=== PATIENT | female | born 1935 | race Caucasian/White ===

== ENCOUNTER 2017-10-04 13:31 | Emergency (ER) | payer BC ==
[~2017-10-04] VITALS: Ht 170.2 cm; Wt 68.8 kg
[~2017-10-04 13:31] MED LIST: CADU10TA; LORA10TA7; MONT10TA2; PARO10TA; PRIN5TAB
[2017-10-04 13:37] VITALS: BP 139/67; PULSE 46; RESP 15; TEMP 98; O2SAT 95
[2017-10-04 13:38] VITALS: O2SAT 98
[2017-10-04] MEDS ORDERED: SODIUM CHLORIDE 0.9% FLUSH 10 ML FLUSH IVF PRN (13:45)
[2017-10-04 13:50] VITALS: BP 134/58; PULSE 45; RESP 16; O2SAT 95
--- NOTE | 2017-10-04 13:54 | PD ---
HPI Chief Complaint: Neurologic symptoms Time Seen by Provider: 13:33 Travel History International Travel<30 days: No Contact w/Intl Traveler<30days: No Traveled to known affect area: No History of Present Illness HPI This patient brought in emergently by paramedics from the shelter that she lives at. Patient was last seen at baseline at 10:30 AM this morning. She presents having right-sided facial droop. She is wheelchair-bound per manager of training report. There was some vagueness and inconsistency as to whether this was a stroke alert or not. It was not called ahead of time as such. In any event she presents out of a 3 hour window. She is on Eliquis for history of A. fib. She is complaining of headache. She was noted to have some right- sided facial weakness. sHe denies aphasia or slurring or weakness of arms or legs different than her baseline. She has baseline bilateral leg weakness and does not ambulate. Duration 3 hours plus a few extra minutes. No alleviating factors. No exacerbating factors. [facility] Past Medical History Anxiety: Yes Hypertension: Yes Past Surgical History Section: Yes Eye Surgery: Yes (CATARACT REMOVED-2004) Tonsillectomy: Yes Social History Alcohol Use: No Tobacco Use: No Substance Use: No Allergies-Medications (Allergen,Severity, Reaction): Coded Allergies: penicillin G (Verified Allergy, Mild, 10/04/17) Reported Meds & Prescriptions Reported Meds & Active Scripts Active Reported Caduet 10/10 (Amlodipine/Atorvastatin) 10 Mg/10 Mg Tab Prinivil (Lisinopril) 5 Mg Tab Singulair (Montelukast Sodium) 10 Mg Tab Claritin (Loratadine) 10 Mg Tab Paxil (Paroxetine HCl) 10 Mg Tab Review of Systems General / Constitutional: No: Fever Eyes: No: Visual changes HENT: No: Headaches Cardiovascular: Positive: Edema, No: Chest Pain or Discomfort Respiratory: No: Shortness of Breath Gastrointestinal: No: Abdominal Pain Genitourinary: No: Dysuria Musculoskeletal: Positive: Weakness, Edema, No: Pain Skin: No Rash Neurologic: Positive: Weakness Psychiatric: No: Depression Endocrine: No: Polydipsia Hematologic/Lymphatic: No: Easy Bruising Physical Exam Narrative GENERAL: Well-nourished, well-developed patient in no apparent distress. SKIN: Focused skin assessment reveals no rash and nodules. Skin is Warm and dry. HEAD: Atraumatic. Normocephalic. EYES: Pupils equal and round. No scleral icterus. No injection or drainage. ENT: No nasal bleeding or discharge. Mucous membranes pink and moist. NECK: Trachea midline. No JVD. CARDIOVASCULAR: Regular rate and rhythm. No murmur appreciated. RESPIRATORY: No accessory muscle use. Clear to auscultation. Breath sounds equal bilaterally. GASTROINTESTINAL: Abdomen soft, non-tender, nondistended. Hepatic and splenic margins not palpable. MUSCULOSKELETAL: No obvious deformities. No clubbing. No cyanosis. Symmetric edema of the lower legs and ankles NEUROLOGICAL: Awake and alert. Has weakness of the right side of her face. There is right-sided facial droop and weakness of the right periorbital musculature. There is also weakness of the right forehead. She has very asymmetric forehead wrinkling. Motor exam shows symmetric upper extremity strength. She has symmetric but diffusely weak lower extremities. She cannot lift either leg completely off the bed. Speech is understandable and I do not detect slurring. PSYCHIATRIC: Appropriate mood and affect; insight and judgment normal. Data Data Last Documented VS Vital Signs Date Time Temp Pulse Resp B/P (MAP) Pulse Ox O2 Delivery O2 Flow Rate FiO2 10/04/17 14:00 52 15 127/63 (84) 95 Nasal Cannula 3.00 10/04/17 13:37 98.0 Orders Orders Electrocardiogram (10/04/17 13:42) Complete Blood Count With Diff (10/04/17 13:42) Basic Metabolic Panel (Bmp) (10/04/17 13:42) Ct Brain W/O Iv Contrast(Rout) (10/04/17 13:42) Ecg Monitoring (10/04/17 13:42) Iv Access Insert/Monitor (10/04/17 13:42) Oximetry (10/04/17 13:42) Blood Glucose (10/04/17 13:42) Sodium Chloride 0.9% Flush (Ns Flush) (10/04/17 13:45) Labs Laboratory Tests Test 10/04/17 13:45 White Blood Count 3.1 TH/MM3 Red Blood Count 3.18 MIL/MM3 Hemoglobin 10.4 GM/DL Hematocrit 29.0 % Mean Corpuscular Volume 91.4 FL Mean Corpuscular Hemoglobin 32.9 PG Mean Corpuscular Hemoglobin Concent 36.0 % Red Cell Distribution Width 15.6 % Platelet Count 435 TH/MM3 Mean Platelet Volume 7.0 FL Neutrophils (%) (Auto) 47.1 % Lymphocytes (%) (Auto) 41.3 % Monocytes (%) (Auto) 11.3 % Eosinophils (%) (Auto) 0.1 % Basophils (%) (Auto) 0.2 % Neutrophils # (Auto) 1.5 TH/MM3 Lymphocytes # (Auto) 1.3 TH/MM3 Monocytes # (Auto) 0.3 TH/MM3 Eosinophils # (Auto) 0.0 TH/MM3 Basophils # (Auto) 0.0 TH/MM3 CBC Comment AUTO DIFF Differential Comment AUTO DIFF CONFIRMED Ovalocytes 1+ Blood Urea Nitrogen 17 MG/DL Creatinine 0.95 MG/DL Random Glucose 129 MG/DL Calcium Level 8.7 MG/DL Sodium Level 138 MEQ/L Potassium Level 3.9 MEQ/L Chloride Level 95 MEQ/L Carbon Dioxide Level 37.4 MEQ/L Anion Gap 6 MEQ/L Estimat Glomerular Filtration Rate 56 ML/MIN MDM Medical Decision Making Medical Screen Exam Complete: Yes Emergency Medical Condition: Yes Medical Record Reviewed: Yes Differential Diagnosis Ischemic CVA, hemorrhagic CVA, Reddy's palsy Narrative Course I have reviewed the patient's electronic medical record. I have ordered EKG and labs and brain CT I do not feel stroke alert protocol would be beneficial to this patient She is not a candidate for TPA, she takes Eliquis On further detailed neurologic exam I think this presentation is most consistent with Reddy's palsy and not CVA at all. Symptoms are limited to right-sided facial weakness with asymmetric forehead strength and weak sided muscles around the right eye and significant right facial droop. I do not see any aphasia or extremity asymmetry Brain CT shows microvascular ischemic change but no hemorrhage Lab studies are reviewed and reasonably normal I discussed the case with Dr. Ríos the primary physician at the shelter via his nurse practitioner. Dr. Ríos is comfortable with her being sent back to the shelter with prescription for prednisone and acyclovir. I reviewed the situation with family at bedside. If there is any neurologic change such as extremity weakness or something more consistent with stroke she will be returned and can be hospitalized for stroke evaluation. Critical Care Narrative Aggregate critical care time was 38 minutes. Time to perform other separately billable procedures was not included in the critical care time. My time did not include minutes spent treating any other patients simultaneously or on activities that did not directly contribute to the patient's treatment. The services I provided to this patient were to treat and/or prevent clinically significant deterioration that could result in: Permanent neurologic deficit, brain stem herniation, cardiopulmonary arrest I provided critical care services requiring my management, as noted below: Chart data review, documentation time, medication orders and management, vital sign assessments/reviewing monitor data, ordering and reviewing lab tests, ordering and interpreting/reviewing x-rays and diagnostic studies, care of the patient and discussion of the patient with the admitting physicians. Diagnosis Primary Impression: Reddy's palsy Additional Impression: Acute focal neurological deficit, onset within 3-24 hours Additional Instructions: Follow-up with shelter MD Start acyclovir and prednisone Return for significant neurologic worsening Med/Other Pt SpecificInfo: Prescription(s) given Disposition: W/HOME HEALTH SERVICE Condition: Stable Carroll Gray MD Oct 04, 2017 13:54
[2017-10-04 14:00] VITALS: BP 127/63; PULSE 52; RESP 15; O2SAT 95
--- NOTE | 2017-10-04 14:03 | RADRPT ---
EXAM DATE/TIME: 10/04/2017 13:47 [facility] COMPARISON: No previous studies available for comparison. INDICATIONS : Altered mental status. RADIATION DOSE: 56.35 CTDIvol (mGy) MEDICAL HISTORY : Non-responsive. SURGICAL HISTORY : Non-responsive. ENCOUNTER: Initial ACUITY: 1 day PAIN SCALE: Non-responsive LOCATION: cranial TECHNIQUE: Multiple contiguous axial images were obtained of the head. Using automated exposure control and adj ustment of the mA and/or kV according to patient size, radiation dose was kept as low as reasonably a chievable to obtain optimal diagnostic quality images. DICOM format image data is available electro nically for review and comparison. FINDINGS: CEREBRUM: The ventricles are normal for age. No evidence of midline shift, mass lesion, hemorrhage or acute in farction. No extra-axial fluid collections are seen. Moderate periventricular and subcortical white matter small vessel ischemic changes are noted bilaterally. Scattered old lacunar infarcts are noted within the bilateral basal ganglia. POSTERIOR FOSSA: The cerebellum and brainstem are intact. The 4th ventricle is midline. The cerebellopontine angle i s unremarkable. EXTRACRANIAL: The visualized portion of the orbits is intact. SKULL: The calvaria is intact. No evidence of skull fracture. CONCLUSION: 1. Moderate periventricular and subcortical white matter small vessel ischemic changes. 2. Scattered old lacunar infarcts within the bilateral basal ganglia. 3. No acute infarct, acute hemorrhage, mass effect or extra-axial fluid collections. Hernando Medina MD on October 04, 2017 at 13:59 Board Certified Radiologist. This report was verified electronically.
[2017-10-04 14:26] LABS: AUTOMATED NEUTROPHIL # 1.5 TH/MM3 (1.8-7.7); BASOPHIL % 0.2 % (0.0-2.0); EOSINOPHIL % 0.1 % (0.0-4.0); HEMOGLOBIN 10.4 GM/DL (11.6-15.3); LYMPH % 41.3 % (9.0-44.0); LYMPHOCYTE # 1.3 TH/MM3 (1.0-4.8); MEAN CELL VOLUME 91.4 FL (80.0-100.0); MEAN CORPUSCULAR HEMOGLOBIN 32.9 PG (27.0-34.0); MONO % 11.3 % (0.0-8.0); MONOCYTE # 0.3 TH/MM3 (0-0.9); NEUT % 47.1 % (16.0-70.0); PLATELET COUNT 435 TH/MM3 (150-450); RED BLOOD COUNT 3.18 MIL/MM3 (4.00-5.30); RED CELL DISTRIBUTION WIDTH 15.6 % (11.6-17.2); WHITE BLOOD COUNT 3.1 TH/MM3 (4.0-11.0)
[2017-10-04 14:51] LABS: BICARBONATE 37.4 MEQ/L (21.0-32.0); CALCIUM 8.7 MG/DL (8.5-10.1); CREATININE 0.95 MG/DL (0.50-1.00)
[2017-10-04 15:35] LABS: OVALOCYTES 1+ (NORMAL)
[2017-10-04 18:30] VITALS: BP 146/76; PULSE 50; RESP 15; O2SAT 95
[2017-10-04 18:31] VITALS: BP 147/63
--- NOTE | 2017-10-06 12:58 | EKG ---
Date Performed: 10/04/2017 Time Performed: 13:41:28 PTAGE: 81 years EKG: SINUS BRADYCARDIA WITH FIRST DEGREE AV BLOCK RIGHT BUNDLE BRANCH BLOCK ANTEROLATERAL MYOCAR DIAL INFARCTION ABNORMAL ECG NO PREVIOUS TRACING DOCTOR: Anil Copeland Interpretating Date/Time 10/06/2017 12:57:16
== END 2017-10-04 18:54 ==
LOC: NEPC 13:31
DX: G51.0 Bell's palsy (principal); I10 Essential (primary) hypertension
CPT/HCPCS: 70450; 80048; 85025; 93005